=== PATIENT | male | born 1965 | race Caucasian/White ===

== ENCOUNTER 2019-01-31 13:37 | Emergency (ER) | payer SELFPAY ==
--- NOTE | 2019-01-31 14:19 | EDM.PDOC ---
ED HPI GENERAL MEDICAL PROBLEM - General Chief Complaint: ENT Problem Stated Complaint: VOICE IS HOARSE Time Seen by Provider: 01/31/19 14:07 Source of Information: Reports: Patient History Limitations: Reports: No Limitations - History of Present Illness INITIAL COMMENTS - FREE TEXT/NARRATIVE: Patient is a 53-year-old male who presents the ED wanting a return to work note. Patient states he was consuming a heavy amounts of alcohol this weekend and developed some sinus congestion with some postnasal drip and a mild sore throat. He has a chronic cough secondary to smoking with no recent changes. States the cough is nonproductive with no hemoptysis. He denies being short of breath. He relation to the sore throat very mild. He states his voice changes every year during this time and last for a few weeks and goes away. His boss was concerned about him and instructed to come to the ED for evaluation. Again this is nothing new for the patient. He denies any difficulties swallowing, headache, ear pain, fever, source of breath, chest pain, or any additional complaints. Patient does work outside and notes there has been no exposure to H2S gas. Throat Pain Score (Numeric/FACES): 2 - Related Data Allergies Allergy/AdvReac Type Severity Reaction Status Date / Time albuterol Allergy Difficulty Verified 01/31/19 13:50 Breathing Home Meds: Home Meds . [No Known Home Meds] 01/31/19 [History] Past Medical History - Past Surgical History HEENT Surgical History: Reports: Tonsillectomy Social & Family History - Tobacco Use Smoking Status *Q: Current Every Day Smoker Years of Tobacco use: 40 Packs/Tins Daily: 1 - Caffeine Use Caffeine Use: Reports: Coffee - Alcohol Use Days Per Week of Alcohol Use: 2 Number of Drinks Per Day: 2 Total Drinks Per Week: 4 - Recreational Drug Use Recreational Drug Use: No ED ROS ENT - Review of Systems Review Of Systems: ROS reveals no pertinent complaints other than HPI. ED EXAM, ENT - Physical Exam Exam: See Below Exam Limited By: No Limitations General Appearance: Alert, WD/WN, No Apparent Distress Eye Exam: Bilateral Eye: Normal Inspection Ears: Hearing Grossly Normal Nose: Normal Inspection, Normal Mucousa, No Blood Mouth/Throat: Normal Gums, Normal Lips, Hoarse Voice, Pharyngeal Erythema, Throat Pain. No: Drooling, Dry Mucous Membrane, Muffled Voice, Oral Ulcers, Peritonsillar Mass, Throat Swelling, Tonsillar Erythema, Tonsillar Exudates, Tonsillar Swelling, Trismus, Uvular Deviation, Uvular Edema Head: Atraumatic, Normocephalic Neck: Normal Inspection, Supple, Non-Tender. No: Lymphadenopathy (L), Lymphadenopathy (R) Respiratory/Chest: No Respiratory Distress, Lungs Clear, Normal Breath Sounds, No Accessory Muscle Use Cardiovascular: Normal Peripheral Pulses, Regular Rate, Rhythm Neurological: Alert, Oriented, CN II-XII Intact, Normal Cognition, No Motor/ Sensory Deficits Psychiatric: Normal Affect, Normal Mood Skin: Warm, Dry, Intact, Normal Color, No Rash Course - Vital Signs Last Recorded V/S: Last Vital Signs Temp 97.6 F 01/31/19 13:48 Pulse 100 01/31/19 13:48 Resp 20 01/31/19 13:48 BP 131/90 01/31/19 13:48 Pulse Ox 100 01/31/19 13:48 - Re-Assessments/Exams Free Text/Narrative Re-Assessment/Exam: Patient's a 53-year-old male who presents to the ED complaining of postnasal drip, sore throat, and hoarse voice. States this weekend he consumed a large amount of alcohol. Developed sinus congestion with postnasal drip causing the sore throat. Sore throat is mild in nature. He has a history of chronic cough unchanged. He denies shortness of breath, or chest pain. He has a long history of smoking and notes that the voice change happens every year during this time during weather pattern changes. This is not unusual for him. there has been no documented fever. No exposure to H2 S gas. His boss requested the patient be evaluated in the ED. Patient is requesting a work note. Prior to leaving the room patient states he received a nipple piercing this past weekend. He is just wondering if it is infected. On examination of the left nipple barbell piercing present with no concerns for infection. No swelling, redness, drainage, or pain present. Departure - Departure Time of Disposition: 14:15 Disposition: Home, Self-Care 01 Condition: Good Clinical Impression: Viral upper respiratory illness, Post-nasal drainage, Hoarseness or changing voice - Discharge Information Instructions: Cool Mist Vaporizer, Viral Respiratory Infection, [id number], Hoarseness Referrals: PCP,None [Primary Care Provider] - Forms: ED Department Discharge, ED Return to Work/School Form Additional Instructions: As discussed suspect cause of current complaint is a viral upper respiratory infection with postnasal drip. Treatment will consist of Flonase 1 spray to each nares twice a day, Claritin 10 mg every a.m., and nasal saline spray 1 spray to each naris as needed throughout the course today. Push the fluids. Ensure adequate rest. Follow-up with PCP and 10 days if hoarseness continues so you can be reevaluated. Please return to the E.D. if you develop any new or worsening symptoms. Stop smoking and refrain from alcohol use since this contributes to body piercing.
== END 2019-01-31 14:25 | disposition home or self-care (01) ==
LOC: JD.ED 13:37
DX: J06.9 Acute upper respiratory infection, unspecified (principal); R09.82 Postnasal drip; R49.0 Dysphonia; F17.210 Nicotine dependence, cigarettes, uncomplicated; Z98.890 Other specified postprocedural states; Z88.8 Allergy status to other drugs, medicaments and biological substances
CPT/HCPCS: 99282